=== PATIENT | female | born 1960 | race Caucasian/White ===

== ENCOUNTER 2020-03-24 08:43 | Outpatient (CLI) | payer OTHER ==
[2020-03-24] MEDS ORDERED: LISI40TA PO (11:01)
[2020-03-25] MEDS ORDERED: VERA80TA25 PO ×3 (13:39→13:53)
== END 2020-03-24 23:59 | disposition home or self-care (01) ==
LOC: CFH 08:43 → EDSTATUS 09:00 → CFH 23:59
PROVIDERS: ATTEND Family Medicine
DX: I60.8 Other nontraumatic subarachnoid hemorrhage (principal); G44.52 New daily persistent headache (NDPH); H02.401 Unspecified ptosis of right eyelid; H53.2 Diplopia; I10 Essential (primary) hypertension; M54.12 Radiculopathy, cervical region; M54.2 Cervicalgia
CPT/HCPCS: 70450

== ENCOUNTER 2020-03-24 10:44 | Inpatient (IN) | payer OTHER ==
[~2020-03-24] VITALS: Ht 160 cm; Wt 61.9 kg
[2020-03-24] MEDS ORDERED: LISI40TA PO (11:01)
--- NOTE | 2020-03-24 11:16 | NUR ---
PIV PLACED, LABS DRAWN AND COLLECTD BY PSYCHIATRIC ORDERLY. EKG DONE. PT CONNECTED TO MONITORING.
[2020-03-24] MEDS ORDERED: SODIUM CHLORIDE FLUSH 10ML SYR IVF ONE (11:30)
[2020-03-24 11:32] LABS: BASOPHILS # (AUTO) 0.02 x10^3/uL (0-0.1); BASOPHILS % (AUTO) 0 % (0-1); EOSINOPHILS % (AUTO) 1 % (1-7); LYMPHOCYTES # (AUTO) 1.86 x10^3/uL (1-3.4); LYMPHOCYTES % (AUTO) 27 % (22-44); MD NO; MEAN CORPUSCULAR HEMOGLOBIN 30.6 pg (27.0-34.8); MEAN CORPUSCULAR HGB CONC 32.8 g/dL (32.4-35.8); MEAN CORPUSCULAR VOLUME 93.1 fL (80-100); MEAN PLATELET VOLUME 8.3 fL (7.4-10.4); MONOCYTES # (AUTO) 0.33 x10^3/uL (0.2-0.8); MONOCYTES % (AUTO) 5 % (2-9); NEUTROPHILS # (AUTO) 4.71 x10^3/uL (1.8-6.8); NEUTROPHILS % (AUTO) 67 % (42-75); PLATELET COUNT 249 x10^3/uL (130-400); RED CELL DISTRIBUTION WIDTH 13.1 % (9.6-15.2)
[2020-03-24 11:45] LABS: ALBUMIN 4.6 g/dL (3.4-5.0); ANION GAP 7 mmol/L (5-15); CALCIUM 10.7 mg/dL (8.5-10.1); CHLORIDE 103 mmol/L (98-107)
--- NOTE | 2020-03-24 11:50 | NUR ---
PT AMBULATED TO RESTROOM WITH STEADY GAIT. CONNECTED TO ALL MONITORING. CALL LIGHT IN REACH. WARM BLANKET PROVIDED.
[2020-03-24 11:51] LABS: ALANINE AMINOTRANSFERASE 22 U/L (12-78); ALKALINE PHOSPHATASE 57 U/L (45-117); BILIRUBIN,TOTAL 0.4 mg/dL (0.2-1.0); TOTAL PROTEIN 8.7 g/dL (6.4-8.2)
[2020-03-24 12:05] LABS: INTERNATIONAL NORMALIZED RATIO 0.92 (0.93-1.1); PROTHROMBIN TIME 9.7 Seconds (9.6-11.5)
--- NOTE | 2020-03-24 12:24 | NUR ---
PT GOING TO CT
[2020-03-24] MEDS ORDERED: OMNIPAQUE 350 MG/ML, 75ML BOTTLE ONE (12:51)
--- NOTE | 2020-03-24 13:11 | NUR ---
ALL RESULTS ARE BACK AT THIS TIME. CHART UP FOR RECHECK.
--- NOTE | 2020-03-24 13:38 | NUR ---
TO CONSULT WITH NEURO SURG.
--- NOTE | 2020-03-24 13:41 | NUR ---
AT BEDSIDE TO UPDATE PT ON POC. NEW ORDER FOR MRI.
--- NOTE | 2020-03-24 14:18 | NUR ---
PT AT MRI
[2020-03-24] MEDS ORDERED: GADOTERATE 7.5 MMOL/15 ML SYR ONE (14:53)
--- NOTE | 2020-03-24 15:09 | NUR ---
ALL RESULTS ARE BACK AT THIS TIME. CHART UP FOR RECHECK.
--- NOTE | 2020-03-24 15:46 | NUR ---
PT TO BE ADMITTED
--- NOTE | 2020-03-24 16:25 | NUR ---
HOSPITALIST AT BEDSIDE.
--- NOTE | 2020-03-24 16:58 | NUR ---
REPORT GIVEN TO JUNIOR JENSEN.
[2020-03-24] MEDS ORDERED: BISACODYL 10 MG SUPP PR PRN (17:00)
[2020-03-24] MEDS ORDERED: DOCUSATE 100 MG CAPSULE PO PRN (17:00)
[2020-03-24] MEDS ORDERED: POLYETHYLENE GLYCOL 17 GM PACKET PO PRN (17:00)
[2020-03-24 17:40] VITALS: BP 212/97
[2020-03-24] MEDS: LABETALOL 5MG/ML, 20ML IVPush PRN (17:42)
[2020-03-24] MEDS: SODIUM CHLORIDE 0.9% 1,000 ML IV SCH (17:51)
[2020-03-24] MEDS: SODIUM CHLORIDE FLUSH 10ML SYR IVF PRN (17:51)
[2020-03-24 18:44] VITALS: BP 177/95
[2020-03-24] MEDS: VERAPAMIL 80MG TABLET PO PRN (18:45)
[2020-03-24 20:00] VITALS: BP 165/74
[2020-03-24] MEDS ORDERED: DIPHENHYDRAMINE 50 MG/ML, 1ML IVPush ONE (20:00)
[2020-03-24] MEDS ORDERED: METOCLOPRAMIDE 5 MG/ML, 2ML IVPush ONE (20:00)
[2020-03-24] MEDS: KETOROLAC 30 MG/1 ML IVPush SCH (20:59)
[2020-03-24 21:33] LABS: AMPHETAMINE SCREEN, URINE Negative (Negative); BARBITURATE SCREEN, URINE Negative (Negative); BENZODIAZEPINE SCREEN, URINE Negative (Negative); CANNABINOID SCREEN, URINE Negative (Negative); COCAINE SCREEN, URINE Negative (Negative); METHADONE SCREEN, URINE Negative (Negative); OPIATE SCREEN, URINE Positive (Negative)
[2020-03-25] VITALS (7 sets, daily range): BP systolic 144–184; BP diastolic 79–113
[2020-03-25] MEDS: LABETALOL 5MG/ML, 20ML IVPush PRN ×2 (00:43→11:06)
[2020-03-25] MEDS: KETOROLAC 30 MG/1 ML IVPush SCH ×3 (04:13→14:00)
[2020-03-25] MEDS: VERAPAMIL 80MG TABLET PO PRN ×2 (04:26→12:40)
[2020-03-25] MEDS ORDERED: LABETALOL 5MG/ML, 20ML IVPush ONE (05:00)
[2020-03-25 06:25] LABS: BASOPHILS # (AUTO) 0.04 x10^3/uL (0-0.1); BASOPHILS % (AUTO) 1 % (0-1); EOSINOPHILS # (AUTO) 0.18 x10^3/uL (0-0.4); EOSINOPHILS % (AUTO) 3 % (1-7); LYMPHOCYTES # (AUTO) 2.23 x10^3/uL (1-3.4); LYMPHOCYTES % (AUTO) 36 % (22-44); MD NO; MEAN CORPUSCULAR HEMOGLOBIN 31.2 pg (27.0-34.8); MEAN CORPUSCULAR HGB CONC 33.9 g/dL (32.4-35.8); MEAN PLATELET VOLUME 8.7 fL (7.4-10.4); MONOCYTES # (AUTO) 0.56 x10^3/uL (0.2-0.8); MONOCYTES % (AUTO) 9 % (2-9); NEUTROPHILS # (AUTO) 3.12 x10^3/uL (1.8-6.8); NEUTROPHILS % (AUTO) 51 % (42-75); PLATELET COUNT 205 x10^3/uL (130-400); RED BLOOD COUNT 4.45 x10^6/uL (3.82-5.3); RED CELL DISTRIBUTION WIDTH 13.3 % (9.6-15.2)
[2020-03-25 06:27] LABS: ALBUMIN 3.3 g/dL (3.4-5.0); ANION GAP 7 mmol/L (5-15); CALCIUM 8.5 mg/dL (8.5-10.1); CHLORIDE 110 mmol/L (98-107)
[2020-03-25 06:40] LABS: ALANINE AMINOTRANSFERASE 16 U/L (12-78); ALKALINE PHOSPHATASE 42 U/L (45-117); BILIRUBIN,TOTAL 0.3 mg/dL (0.2-1.0); CREATININE 0.61 mg/dL (0.55-1.02); TOTAL PROTEIN 6.4 g/dL (6.4-8.2)
[2020-03-25] MEDS: SODIUM CHLORIDE 0.9% 1,000 ML IV SCH (06:57)
[2020-03-25] MEDS ORDERED: LEVETIRACETAM 500 MG TABLET PO SCH (09:00)
[2020-03-25] MEDS ORDERED: LISINOPRIL 40 MG TABLET PO SCH (09:00)
[2020-03-25] MEDS ORDERED: VERA80TA25 PO ×3 (13:39→13:53)
== END 2020-03-25 15:18 | disposition home or self-care (01) | DRG 65 ==
LOC: ED 11:22 → EDIP 13:56 → 4EST 17:18 → DCLOUNGE 03-25 15:12
PROVIDERS: ADMIT Internal Medicine; ATTEND Internal Medicine
DX: I60.9 Nontraumatic subarachnoid hemorrhage, unspecified (principal); M31.9 Necrotizing vasculopathy, unspecified; I67.841 Reversible cerebrovascular vasoconstriction syndrome; I10 Essential (primary) hypertension; R29.700 NIHSS score 0; R58 Hemorrhage, not elsewhere classified; Z90.710 Acquired absence of both cervix and uterus
CPT/HCPCS: 36415; 70496; 70498; 70553; 71045; 80053; 80307; 82607; 83735; 84100; 84443; 85025; 85610; 85730; 93005; 96374; 99285; G0378; J1885; Q9967; A9575; J7030